=== PATIENT | female | born 1960 | race Caucasian/White ===

== ENCOUNTER → 2019-06-24 16:00 | Outpatient (BNVA) | payer SELFPAY | PROVIDERS: Family Provider Nurse Practitioner Family; PCP Nurse Practitioner Family; Visit Provider Nurse Practitioner Family | DX: E03.9 Hypothyroidism, unspecified (principal) | CPT/HCPCS: 84443 ==

== ENCOUNTER → 2019-08-12 11:42 | Outpatient (BNVA) | payer SELFPAY | PROVIDERS: Family Provider Nurse Practitioner Family; PCP Nurse Practitioner Family; Visit Provider Nurse Practitioner Family | DX: R05 Cough (principal); J44.1 Chronic obstructive pulmonary disease with (acute) exacerbation | CPT/HCPCS: 87804 ==

== ENCOUNTER → 2019-10-26 10:19 | Outpatient (BNVA) | payer SELFPAY | PROVIDERS: Family Provider Nurse Practitioner Family; PCP Nurse Practitioner Family; Visit Provider Family Medicine | DX: E03.9 Hypothyroidism, unspecified (principal); E07.9 Disorder of thyroid, unspecified | CPT/HCPCS: 84443 ==

== ENCOUNTER → 2020-02-22 10:56 | Outpatient (BNVA) | payer OTHER, SELFPAY | PROVIDERS: Family Provider Nurse Practitioner Family; PCP Nurse Practitioner Family; Visit Provider Nurse Practitioner Family | DX: Z11.59 Encounter for screening for other viral diseases (principal); J44.9 Chronic obstructive pulmonary disease, unspecified | CPT/HCPCS: 87635 ==

== ENCOUNTER → 2020-02-23 16:18 | Outpatient (BNVA) | payer OTHER, SELFPAY | PROVIDERS: Family Provider Nurse Practitioner Family; PCP Nurse Practitioner Family; Visit Provider Nurse Practitioner Family | DX: Z11.59 Encounter for screening for other viral diseases (principal); J22 Unspecified acute lower respiratory infection; J44.9 Chronic obstructive pulmonary disease, unspecified; R11.0 Nausea | CPT/HCPCS: 87635 ==

== ENCOUNTER 2020-02-24 19:05 | Emergency (ER) | payer SELFPAY ==
[2020-02-24 19:20] VITALS: BP 183/128; PULSE 94; RESP 24; TEMP 37.6; O2SAT 88
--- NOTE | 2020-02-24 19:29 | XR_ITS ---
WS: [id number] Portable AP upright chest, 02/24/2020 Clinical Data: dyspnea, COVID Comparison: PA and lateral chest, 05/14/2018. Findings: The heart is enlarged. The pulmonary vascularity is increased. There is a patchy opacity ob scuring the right cardiac border and bilateral patchy opacities in the lower lobes. No pneumothorax i s seen. There are no nodules or masses. Monitor leads are on the chest wall. XR/XR chest 1V portable [id number] Impression: 1. Right middle lobe and bilateral lower lobe opacities which could represent a cute pneumonia. 2. Cardiomegaly and pulmonary vascular congestion.
--- NOTE | 2020-02-24 19:37 | W.ED.SOB ---
HPI - SOB/Dyspnea General: Chief Complaint: Shortness of Breath/Dyspnea Stated Complaint: SOB Time Seen by Provider: 02/24/20 19:10 History of Present Illness: HPI Narrative: This patient is a 59-year-old female who presents to the emergency room today with a known positive COVID test. She is experiencing severe shortness of breath. She reports that she developed a fever on Friday but since before that she been having some cough and cold symptoms. She does not know when she might have been exposed but does note that she had family in from [place] with young children 13 days before the cough symptoms began. She and her both felt ill on the same day and they had not been anywhere else together, so the patient thinks that may have been her exposure. She has a pulse ox at home and has been checking her oxygen level. She does have a history of COPD but it is well controlled and she does not normally use home oxygen. She said for the last couple of years every winter she gets a persistent bronchitis and does have oxygen that she uses on an as-needed basis only. She has been using it with this illness. She has been watching her pulse ox and over the past 2 days it has been dropping. Her normal is about 93% on room air. She said even with her oxygen she has not been able to get it over 85% today even at rest. With any sort of exertion at all she said it drops into the 70s.. When EMS arrived her sat was 70% on room air. On my evaluation she was on nasal cannula at 6 L and her sat was 87%. She has had cough, fever, body aches, chills. She has lost her sense of taste and smell. She has had nausea but no vomiting or diarrhea. She saw her primary care provider on Friday and had outpatient testing done. She was informed that it was positive. She was started on doxycycline with her history of bronchitis. She did not improve with that and it was changed to Levaquin. She also started taking prednisone yesterday and her PCP gave her a shot of some type of steroid in the office. MD elicited complaint: shortness of breath and cough Pertinent past history: COPD Onset (ago): day(s) (7 days of cough, 5 days of fever) Severity: severe Exacerbating factors: exertion Relieving factors: oxygen and rest Known history of: COPD Associated symptoms: Reports cough, fever(s), myalgias and nausea; Deny chest pain Treatment prior to arrival: oxygen Review of Systems General: Reports: 10 or more systems reviewed and unremarkable except in HPI and below Const: Reports: fever(s) Eyes: Denies: change in vision ENMT: Denies: odynophagia Card: Denies: chest pain or swelling of feet/ankles Resp: Reports: dyspnea and non-productive cough; Denies: productive cough GI: Reports: nausea : Denies: flank pain or difficulty voiding Musc: Denies: neck pain or back pain Skin/Breast: Denies: rash Neuro: Denies: headache(s), numbness in extremities or weakness in extremities Iain/Lymph: Denies: easy bruising or easy bleeding PFSH ED PFSH: Medical History COPD (chronic obstructive pulmonary disease) Diabetes Essential hypertension, benign Hypothyroid Lower respiratory infection Mixed hyperlipidemia Nausea Vitamin D deficiency Social History Smoking and tobacco status: never smoked Second hand smoke exposure: No Alcohol intake: never Desire information about alcohol rehabilitation?: No Counseling given: No Desire information about substance/drug rehabilitation?: No Counseling given: No Physical Exam Const: COMMON NORMALS: patient oriented x3, no limitations and alert GENERAL APPEARANCE: cooperative and in distress (Mild) NUTRITIONAL APPEARANCE: obese ORIENTATION/CONSCIOUSNESS: Yes awake HENMT: HEAD & SCALP: normal to inspection FACE & SINUS: normal facial exam Eye: GENERAL EYE: appearance normal, both eyes and all related structures Neck/C-Spine: COMMON NORMALS: supple, no meningeal signs and no JVD Chest: COMMONS NORMALS: normal inspection of the chest Resp: EFFORT & INSPECTION: Yes tachypneic and Yes respiratory distress AUSCULTATION: wheezes (Trace, scattered, greatest in left upper lobe) Cardio: COMMON NORMALS: no JVD, regular rate, regular rhythm and No murmurs present (Cardio) RATE: regular rate RHYTHM: regular rhythm GI: COMMON NORMALS: Normal to inspection, nondistended, normoactive bowel sounds present, Soft to palpation and non-tender INSPECTION: Yes normal to inspection AUSCULTATION: Yes normoactive bowel sounds PALPATION: Yes Soft to palpation Back/Pelvis: COMMON NORMALS: thoracic and lumbar spine normal to inspection Extremity: COMMON NORMALS: normal to inspection Neuro: COMMON NORMALS: patient oriented x3, moves all extremities, no focal motor deficits and no sensory deficits noted SENSORIUM/ORIENTATION: Yes alert MENINGEAL SIGNS: Yes no meningeal signs Psych: COMMON NORMALS: mental status grossly normal, cooperative and normal affect Skin: COMMON NORMALS: no rashes or lesions noted and turgor normal GENERAL SKIN EXAM: no rashes or lesions noted and turgor normal Course ED course: Patient is COVID positive with shortness of breath, hypoxia. She has a history of COPD. We are not able to maintain sats on nasal cannula even at 6 L. We have her currently on BiPAP at 50% FiO2, 18/8. She is doing well with this with sats in the mid 90s. She is comfortable. We are not able to admit her here currently as we do not have a bed for her. She is amenable to transfer. Both hospitals in [place] are full and unable to accept any patients. She was accepted to [place] by Dr. Mcknight and will be transferred there by air if weather permits. She also has a high glucose and she was given some insulin for treatment of that. Vital Signs: Vital signs: Vital Signs Temperature 99.7 F H 02/24/20 19:20 Pulse Rate 97 02/25/20 00:28 Respiratory Rate 18 02/25/20 00:28 Blood Pressure 156/92 02/25/20 00:28 Pulse Oximetry 93 02/25/20 00:02 MDM - SOB/Dyspnea Lab Data: Labs: Lab Results 02/24/20 02/24/20 02/24/20 Range/Units 19:30 19:30 19:30 WBC 4.5 (4.0-10.0) 10^3/ uL RBC 5.61 H (4.1-5.3) 10^6/u L Hgb 16.5 H (11.5-15.3) g/dL Hct 51.0 H (37.0-47.0) % MCV 90.9 (81-99) fL MCH 29.4 (28.0-34.0) pg MCHC 32.4 (30.0-36.0) g/dL RDW 14.0 (12.1-15.1) % Plt Count 143 (130-400) 10^3/c mm MPV 12.9 H (7.4-10.4) fL Neut % (Auto) 81.7 % Lymph % (Auto) 13.3 % Faulkner % (Auto) 3.5 % Eos % (Auto) 0.0 % Baso % (Auto) 0.2 % Neut # (Auto) 3.68 (1.8-7.7) 10^3/u L Lymph # (Auto) 0.6 L (0.8-4.8) 10^3/u L Faulkner # (Auto) 0.2 (0.2-0.9) 10^3/u L Eos # (Auto) 0.0 (0.0-0.8) 10^3/u L Baso # (Auto) 0.0 (0.0-0.1) 10^3/u L Nucleated RBC % (a uto) 0 % Nucleated RBCs # 0.0 /100WBC PT 12.10 (12.1-14.9) SECO NDS INR 0.87 (0.8-1.2) Fibrinogen 663 H (174-498) mg/dL D-Dimer 0.49 (0-0.59) ug/mIFE U Sodium 130 L (136-145) mmol/L Potassium 4.5 (3.5-5.1) mmol/L Chloride 87 L (98-107) mmol/L Carbon Dioxide 22 (22-29) mmol/L Anion Gap 25.5 H (5-19) BUN 18 (6-20) mg/dL Creatinine 0.7 (0.5-0.9) mg/dL GFR Calculation 85.9 L (90-130) mL/min Glucose 397 H (65-115) mg/dL Calculated Osmolal ity 283 L (285-295) mOsm/k g Lactic Acid (0.5-2.2) mmol/L Calcium 9.2 (8.5-10.5) mg/dL Magnesium 2.2 (1.7-2.3) mg/dL Ferritin 2150 H (15-150) ng/mL Total Bilirubin 0.4 (0.15-1.2) mg/dL AST 54 H (0-32) U/L ALT 121 H (0-33) U/L Alkaline Phosphata se 57 (35-105) IU/L C-Reactive Protein 90.7 H (0.0-4.9) mg/L NT-Pro-B Natriuret Pep 151 H (0-125) pg/mL Total Protein 8.4 (6.6-8.7) g/dL Albumin 4.3 (3.5-5.2) g/dL Globulin 4.1 (1.3-4.6) g/dL Procalcitonin 0.20 (0-0.5) ng/mL 02/24/20 Range/Units 20:56 WBC (4.0-10.0) 10^3/ uL RBC (4.1-5.3) 10^6/u L Hgb (11.5-15.3) g/dL Hct (37.0-47.0) % MCV (81-99) fL MCH (28.0-34.0) pg MCHC (30.0-36.0) g/dL RDW (12.1-15.1) % Plt Count (130-400) 10^3/c mm MPV (7.4-10.4) fL Neut % (Auto) % Lymph % (Auto) % Faulkner % (Auto) % Eos % (Auto) % Baso % (Auto) % Neut # (Auto) (1.8-7.7) 10^3/u L Lymph # (Auto) (0.8-4.8) 10^3/u L Faulkner # (Auto) (0.2-0.9) 10^3/u L Eos # (Auto) (0.0-0.8) 10^3/u L Baso # (Auto) (0.0-0.1) 10^3/u L Nucleated RBC % (a uto) % Nucleated RBCs # /100WBC PT (12.1-14.9) SECO NDS INR (0.8-1.2) Fibrinogen (174-498) mg/dL D-Dimer (0-0.59) ug/mIFE U Sodium (136-145) mmol/L Potassium (3.5-5.1) mmol/L Chloride (98-107) mmol/L Carbon Dioxide (22-29) mmol/L Anion Gap (5-19) BUN (6-20) mg/dL Creatinine (0.5-0.9) mg/dL GFR Calculation (90-130) mL/min Glucose (65-115) mg/dL Calculated Osmolal ity (285-295) mOsm/k g Lactic Acid 1.5 (0.5-2.2) mmol/L Calcium (8.5-10.5) mg/dL Magnesium (1.7-2.3) mg/dL Ferritin (15-150) ng/mL Total Bilirubin (0.15-1.2) mg/dL AST (0-32) U/L ALT (0-33) U/L Alkaline Phosphata se (35-105) IU/L C-Reactive Protein (0.0-4.9) mg/L NT-Pro-B Natriuret Pep (0-125) pg/mL Total Protein (6.6-8.7) g/dL Albumin (3.5-5.2) g/dL Globulin (1.3-4.6) g/dL Procalcitonin (0-0.5) ng/mL Discharge Plan Discharge Patient Disposition: Xfer Short-Term Hosp Clinical Impression: COVID-19, Hyperglycemia due to diabetes mellitus COPD (chronic obstructive pulmonary disease) Qualifiers: COPD type: unspecified COPD Qualified Code(s): J44.9 - Chronic obstructive pulmonary disease, unspecified Respiratory failure Qualifiers: Chronicity: acute Respiratory failure complication: unspecified whether with hypoxia or hypercapnia Qualified Code(s): J96.00 - Acute respiratory failure, unspecified whether with hypoxia or hypercapnia Hypertension Qualifiers: Hypertension type: essential hypertension Qualified Code(s): I10 - Essential (primary) hypertension Condition: Stable Discharge Date/Time: 02/25/20 00:40 Coding Level of Care Code ED Interventional Radiology Technologist for [facility] Fwd Exam Comprehensive
[2020-02-24 19:58] VITALS: PULSE 90; RESP 20; O2SAT 94
[2020-02-24 20:06] LABS: Basophils % 0.2 %; Hemoglobin 16.5 g/dL (11.5-15.3); Lymphocytes # 0.6 10^3/uL (0.8-4.8); Lymphocytes % 13.3 %; Mean Corpuscular HGB Conc 32.4 g/dL (30.0-36.0); Mean Corpuscular Hemoglobin 29.4 pg (28.0-34.0); Mean Corpuscular Volume 90.9 fL (81-99); Mean Platelet Volume 12.9 fL (7.4-10.4); Monocytes # 0.2 10^3/uL (0.2-0.9); Monocytes % 3.5 %; Neutrophils # 3.68 10^3/uL (1.8-7.7); Neutrophils % 81.7 %; Nucleated Red Blood Cells % 0 %; Platelet Count 143 10^3/cmm (130-400); Red Blood Count 5.61 10^6/uL (4.1-5.3); White Blood Count 4.5 10^3/uL (4.0-10.0)
[2020-02-24 20:36] LABS: NT Pro B Type Natriuretic Pept 151 pg/mL (0-125)
[2020-02-24] MEDS: enoxaparin 120 mg/0.8 mL Syringe 110 MG SUBCUT (20:47)
[2020-02-24 20:48] LABS: Alanine Aminotransferase 121 U/L (0-33); Albumin Level 4.3 g/dL (3.5-5.2); Alkaline Phosphatase 57 IU/L (35-105); Anion Gap 25.5 (5-19); Aspartate Amino Transferase 54 U/L (0-32); Blood Urea Nitrogen 18 mg/dL (6-20); C Reactive Protein 90.7 mg/L (0.0-4.9); Calcium 9.2 mg/dL (8.5-10.5); Carbon Dioxide 22 mmol/L (22-29); Chloride 87 mmol/L (98-107); Globulin 4.1 g/dL (1.3-4.6); Glomerular Filtration Rate 85.9 mL/min (90-130); Glucose 397 mg/dL (65-115); Magnesium 2.2 mg/dL (1.7-2.3); Osmolality Calculated 283 mOsm/kg (285-295); Potassium 4.5 mmol/L (3.5-5.1); Sodium 130 mmol/L (136-145); Total Bilirubin 0.4 mg/dL (0.15-1.2); Total Protein 8.4 g/dL (6.6-8.7)
[2020-02-24] MEDS: dexamethasone 10 mg/mL INJ IVP (20:48)
[2020-02-24 20:59] LABS: INR 0.87 (0.8-1.2)
[2020-02-24 21:02] LABS: D Dimer 0.49 ug/mIFEU (0-0.59)
[2020-02-24 21:05] VITALS: BP 158/98; RESP 18; O2SAT 98
[2020-02-24 21:08] LABS: Ferritin 2150 ng/mL (15-150)
[2020-02-24 21:13] LABS: Fibrinogen 663 mg/dL (174-498)
[2020-02-24 21:24] LABS: Lactic Sepsis W/Reflex 1.5 mmol/L (0.5-2.2)
[2020-02-24 21:26] VITALS: BP 156/117; RESP 18
[2020-02-24 23:18] VITALS: BP 157/102; PULSE 90; RESP 18; O2SAT 93
[2020-02-24] MEDS: insulin regular-human 100 units/1 mL 10 UNIT IVP (23:53)
[2020-02-25] VITALS: PULSE 97; RESP 22; O2SAT 93
[2020-02-25 00:02] VITALS: PULSE 97; O2SAT 93
[2020-02-25 00:28] VITALS: BP 156/92; PULSE 97; RESP 18
== END 2020-02-25 00:40 | disposition short-term general hospital (02) ==
PROVIDERS: Emergency Provider Emergency Medicine
DX: U07.1 COVID-19 (principal); E11.65 Type 2 diabetes mellitus with hyperglycemia; I10 Essential (primary) hypertension; J44.9 Chronic obstructive pulmonary disease, unspecified; J96.00 Acute respiratory failure, unspecified whether with hypoxia or hypercapnia; E78.2 Mixed hyperlipidemia
CPT/HCPCS: 12345; 71045; 80053; 82728; 83605; 83735; 83880; 84145; 85025; 85378; 85384; 85610; 86140; 87040; 94660; 96365; 96375; 96376; 99283; 99291; J1100; J1650; J1815